=== PATIENT | female | born 1985 | race Caucasian/White ===

== ENCOUNTER 2018-03-08 13:51 | Outpatient (CLI) | payer SELFPAY | END 2018-03-08 13:52 | disposition home or self-care (01) | LOC: C.USIC 13:52 | DX: R31.29 Other microscopic hematuria (principal) ==

== ENCOUNTER 2018-04-15 12:06 | Emergency (ER) | payer SELFPAY | END 2018-04-15 13:16 | disposition home or self-care (01) | LOC: C.ER 12:06 ==